=== PATIENT | female | born 1985 | race Caucasian/White ===

== ENCOUNTER 2017-01-23 04:32 | Emergency (ER) | payer BC, MEDICAID ==
[2017-01-23 04:56] VITALS: BP 119/70
[2017-01-23] MEDS ORDERED: Ketorolac 60 MG/2 ML SDV IM ONE (05:21)
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
== END 2017-01-23 05:43 | disposition home or self-care (01) ==
LOC: KA.ED 04:32
DX: G89.29 Other chronic pain (principal); M54.5 Low back pain; M19.90 Unspecified osteoarthritis, unspecified site; F17.210 Nicotine dependence, cigarettes, uncomplicated; Z79.899 Other long term (current) drug therapy
CPT/HCPCS: 96372; 99283; J1885

== ENCOUNTER 2022-12-05 11:57 | Emergency (ER) | payer BC ==
[2022-12-05 12:15] VITALS: BP 116/85; PULSE 80
== END 2022-12-05 13:20 | disposition home or self-care (01) ==
LOC: KA.ED 11:57
DX: R59.0 Localized enlarged lymph nodes (principal)
CPT/HCPCS: 99282; 99284